=== PATIENT | female | born 1990 | race Asian ===

== ENCOUNTER 2023-07-14 09:42 | Emergency (ER) | payer BC ==
[~2023-07-14] VITALS: Ht 147.3 cm; Wt 68.0 kg
[2023-07-14 09:49] VITALS: BP_SYST 126; PULSE 78; RESP 18; TEMP 98; O2SAT 98
[2023-07-14 10:30] LABS: HEMATOCRIT 40.5 % (36-48); HEMOGLOBIN 12.6 g/dL (12.0-16.0); MEAN CORPUSCULAR HEMOGLOBIN 19 pg (27-31); MEAN CORPUSCULAR HGB CONC 31 % (32-36); MEAN CORPUSCULAR VOLUME 62 fL (79.0-98.0); PLATELET COUNT (AUTO) 288 K/uL (130-430); RED BLOOD CELL COUNT(AUTO) 6.58 MIL/uL (4.2-6.2); RED CELL DISTRIBUTION WIDTH 16.9 % (9.0-15.0); WHITE BLOOD COUNT (AUTO) 11.2 K/uL (4.8-10.8)
[2023-07-14 10:50] LABS: ATYPICAL LYMPHOCYTES % 3 % (0-0); BASOPHILS % (MANUAL) 0 % (0-2); EOSINOPHILS % (MANUAL) 0 % (0-7); LYMPHOCYTES % (MANUAL) 27 % (20-46); MONOCYTES % (MANUAL) 7 % (0-11)
[2023-07-14 10:51] LABS: ANISOCYTOSIS 2+; HYPOCHROMASIA 2+; PLATELET ESTIMATE ADEQUATE (ADEQUATE)
[2023-07-14 13:25] VITALS: BP_SYST 107; PULSE 60; RESP 17; TEMP 98.1; O2SAT 100
== END 2023-07-14 13:25 | disposition home or self-care (01) ==
LOC: SED 09:42
DX: O20.0 Threatened abortion (principal); Z3A.08 8 weeks gestation of pregnancy; Z79.899 Other long term (current) drug therapy
CPT/HCPCS: 36415; 76817; 81025; 84702; 85007; 85027; 86901; 99284

== ENCOUNTER 2023-08-29 10:38 | Emergency (ER) | payer BC ==
[~2023-08-29] VITALS: Ht 144.8 cm; Wt 68.9 kg
[2023-08-29 10:38] VITALS: BP_SYST 144; PULSE 88; RESP 19; TEMP 97.6; O2SAT 100
[2023-08-29 11:10] LABS: BASOPHILS % (AUTO) 0.4 % (0.0-2.0); EOSINOPHILS # (AUTO) 0.1 K/uL (0.0-0.4); EOSINOPHILS % (AUTO) 0.7 % (0.0-4.0); HEMATOCRIT 39.7 % (36-48); HEMOGLOBIN 12.7 g/dL (12.0-16.0); LYMPHOCYTES % (AUTO) 17.1 % (20.5-51.5); MEAN CORPUSCULAR HEMOGLOBIN 20 pg (27-31); MEAN CORPUSCULAR HGB CONC 32 % (32-36); MEAN CORPUSCULAR VOLUME 62 fL (79.0-98.0); MONOCYTES # (AUTO) 0.5 K/uL (0.0-1.0); MONOCYTES % (AUTO) 4.4 % (1.7-9.3); NEUTROPHILS % (AUTO) 77.4 % (40.0-70.0); PLATELET COUNT (AUTO) 299 K/uL (130-430); RED BLOOD CELL COUNT(AUTO) 6.45 MIL/uL (4.2-6.2); RED CELL DISTRIBUTION WIDTH 17.2 % (9.0-15.0); WHITE BLOOD COUNT (AUTO) 11.6 K/uL (4.8-10.8)
[2023-08-29 11:14] LABS: CALCIUM 8.6 mg/dL (8.4-11.0); CREATININE 0.66 mg/dL (0.55-1.30); POTASSIUM 3.7 mmol/L (3.5-5.1)
[2023-08-29 12:07] LABS: BILIRUBIN,URINE NEGATIVE (NEGATIVE); BLOOD, URINE 3+ (NEGATIVE); CLARITY/URINE CLEAR (CLEAR); COLOR,URINE YELLOW (YELLOW); GLUCOSE,URINE NEGATIVE (NEGATIVE); KETONES,URINE NEGATIVE (NEGATIVE); LEUKOCYTE ESTERASE ,URINE NEGATIVE (NEGATIVE); NITRITE, URINE NEGATIVE (NEGATIVE); PROTEIN URINE TRACE (NEGATIVE); UROBILINOGEN,URINE 0.2 (0.2-1.0)
[2023-08-29 12:45] LABS: WBC,URINE 0-3 /HPF (0-3)
[2023-08-29 12:46] LABS: BACTERIA,URINE FEW /HPF (None Seen)
[2023-08-29 15:13] LABS: ANISOCYTOSIS 1+; HYPOCHROMASIA SLIGHT; TARGET CELLS FEW
== END 2023-08-29 13:06 | disposition home or self-care (01) ==
LOC: SED 10:38
DX: O20.0 Threatened abortion (principal); Z3A.11 11 weeks gestation of pregnancy; Z79.899 Other long term (current) drug therapy
CPT/HCPCS: 36415; 76801; 80048; 81000; 81001; 81015; 84702; 85025; 99284